=== PATIENT | male | born 1940 | race Caucasian/White ===

== ENCOUNTER → 2020-05-04 10:02 | Outpatient (CLI) | payer MEDICARE, OTHER ==
[2020-05-04 10:55] LABS: BASOPHILS 0.4 % (0-2); EOSINOPHILS 1.9 % (0-7); HEMATOCRIT 48.1 % (42.0-54.0); HEMOGLOBIN 15.8 g/dL (13.5-17.5); IMMATURE GRANULOCYTES 0.2 % (0-5); LYMPHOCYTES 19.9 % (15-50); MCH 33.2 pg (26.0-34.0); MCHC 32.8 g/dL (31.0-37.0); MCV 101.1 fL (80.0-100.0); MEAN PLATELET VOLUME 8.9 fL (7.4-10.4); MONOCYTES 7.7 % (2-11); NEUTROPHILS 69.9 % (40-80); PLATELET COUNT 244 10x3/uL (130-400); RBC 4.76 10x6/uL (4.20-6.10); RDW 13.7 % (11.5-14.5); WBC 11.3 10x3/uL (4.8-10.8)
[2020-05-04 11:41] LABS: ALBUMIN 3.6 g/dL (3.4-5.0); ANION GAP 7.5 mmol/L (8-16); BILIRUBIN - TOTAL 0.31 mg/dL (0.2-1.3); CALCIUM 9.3 mg/dL (8.5-10.1); CARBON DIOXIDE 34.1 mmol/L (21.0-32.0); CREATININE - SERUM 1.5 mg/dL (0.6-1.3); POTASSIUM - SERUM 4.6 mmol/L (3.5-5.1); PROTEIN - SERUM 7.1 g/dL (6.4-8.2)
[2020-05-05 14:09] LABS: CEA 3.4 ng/mL (0.0-4.7)
== END | disposition home or self-care (01) ==
LOC: D.LAB 10:02
PROVIDERS: ATTEND Internal Medicine Pulmonary Disease
DX: Z11.59 Encounter for screening for other viral diseases (principal); R91.8 Other nonspecific abnormal finding of lung field

== ENCOUNTER 2020-05-06 08:00 | Outpatient (CLI) | payer MEDICARE, OTHER ==
[2020-06-26 09:08] VITALS: BMI 27.1
== END 2020-05-06 08:01 | disposition home or self-care (01) ==
LOC: D.RT 08:00
PROVIDERS: ATTEND Internal Medicine Pulmonary Disease
DX: R91.8 Other nonspecific abnormal finding of lung field (principal); Z11.59 Encounter for screening for other viral diseases

== ENCOUNTER 2020-06-26 07:07 | Day surgery (SDC) | payer MEDICARE, OTHER ==
[~2020-06-26] VITALS: Ht 180.3 cm; Wt 88.2 kg
[2020-06-26 07:29] LABS: HEMATOCRIT 48.8 % (42.0-54.0); HEMOGLOBIN 15.9 g/dL (13.5-17.5); MCH 32.4 pg (26.0-34.0); MCHC 32.6 g/dL (31.0-37.0); MCV 99.6 fL (80.0-100.0); MEAN PLATELET VOLUME 9.1 fL (7.4-10.4); RBC 4.9 10x6/uL (4.20-6.10); RDW 13.8 % (11.5-14.5); WBC 15.4 10x3/uL (4.8-10.8)
[2020-06-26 07:46] LABS: ANION GAP 13.8 mmol/L (8-16); CALCIUM 9.9 mg/dL (8.5-10.1); CARBON DIOXIDE 25.4 mmol/L (21.0-32.0); CREATININE - SERUM 1.3 mg/dL (0.6-1.3); POTASSIUM - SERUM 4.2 mmol/L (3.5-5.1)
[2020-06-26] MEDS ORDERED: TOPROL XL50 MG PO (08:45)
[2020-06-26] MEDS ORDERED: ZYLOPRIM300 MG PO (08:46)
[2020-06-26] MEDS ORDERED: GLUCOPHAGE1000 MG PO (08:47)
[2020-06-26] MEDS ORDERED: LEVOTHYROXINE150 MCG PO (08:47)
[2020-06-26] MEDS ORDERED: ALBUTEROL SULF8.5 GM INH (08:48)
[2020-06-26] MEDS ORDERED: ABILIFY10 MG PO (08:49)
[2020-06-26] MEDS ORDERED: PRAVACHOL40 MG PO (08:49)
[2020-06-26] MEDS ORDERED: BUPROPION XL150 MG PO (08:50)
[2020-06-26] MEDS ORDERED: JARDIANCE25 MG PO (08:51)
[2020-06-26] MEDS ORDERED: TRAZODONE HCL100 MG PO (08:52)
[2020-06-26] MEDS ORDERED: ANORO ELLIPTA1 EACH INH (08:53)
[2020-06-26] MEDS ORDERED: DONEPEZIL HCL10 MG PO (08:54)
[2020-06-26] MEDS ORDERED: MELATONIN5 M3 PO (08:55)
[2020-06-26] MEDS ORDERED: EFFEXOR XR150 MG PO (08:56)
[2020-06-26 09:08] VITALS: BP 134/81; Ht 180.3 cm; Wt 88.2 kg
--- NOTE | 2020-06-27 17:57 | OP ---
PATIENT NAME: SILVINA ANDREWS MEDICAL RECORD: [id number] :40 LOCATION:[facility] ADMISSION DATE: SURGEON: CARLOZ BROWNLEE DO DATE OF OPERATION: 06/26/2020 PROCEDURE: Colonoscopy with polypectomy. INDICATION FOR PROCEDURE: 1. History of colon polyps. The patient was asked to have a repeat recall colonoscopy at 3 years, but his last colonoscopy was in 2013. 2. Diverticulosis. 3. Diarrhea which the patient reports has resolved since his clinic visit. 4. Abnormal weight loss. SCOPE: Olympus video pediatric colonoscope. MEDICATIONS: Propofol 460 mg IV and 900 mcg of Konstantin-Synephrine IV per anesthesia. WITHDRAWAL TIME: 28 minutes. ESTIMATED BLOOD LOSS: Minimal. COMPLICATIONS: None immediate. FINDINGS: Informed consent was given. The patient was made comfortable with the above medications. After reaching an adequate level of sedation by slow IV push, the patient was placed on his left side. The endoscope was advanced under direct visualization through the rectum to the cecum where the appendiceal orifice and the ileocecal valve were visualized. The endoscope was slowly withdrawn. Mucosa was examined to the best of my ability. The prep quality was extremely poor, limiting visualization. There were multiple polyps visualized on today's examination. Seven benign-appearing depressed and sessile adenomatous polyps were identified in the descending colon. They ranged in size from 4 to 8 mm in diameter. They were removed using a hot snare. In the transverse colon, there were 2 sessile polyps, which ranged in size from 5 to 7 mm in diameter. They were removed using a hot snare. In the ascending colon, there were 3 separate benign-appearing sessile polyps, which ranged in size from 5 to 7 mm in diameter. They were removed using a hot snare. In the cecum, there was a large polyp, which measured approximately 2 to 2.5 cm in size. It was removed using endoscopic mucosal resection technique with a saline pillow and Eleview injection followed by hot snare polypectomy. The defect left behind was closed using 6 endoclips successfully. Due to the inadequate prep, visualization was extremely limited and the patient will be requested to repeat a colonoscopy in the near future. The colonoscope was withdrawn from the patient. The patient did tolerate the procedure well and there were no immediate complications. IMPRESSION: 1. Multiple polyps as described above, removed using a combination of a hot snare and endoscopic mucosal resection technique. 2. Inadequate prep. PLAN AND RECOMMENDATIONS: 1. Discharge home when recovery parameters are met. OPERATIVE REPORT [id number] SILVINA ANDREWS 2. Follow up biopsy specimen results. 3. High-fiber diet. 4. Continue current medications. 5. Recall colonoscopy in 3-6 months utilizing a split bowel prep. NTS:[id number] Voice Confirmation ID: [id number] DOCUMENT ID: [id number] CARLOZ BROWNLEE DO at 1757 CC: [id number] DICTATION DATE: 06/26/20 1119 TECHNOLOGY ASSISTANT: 06/26/[address] [facility] 06/26/20 [id number] [place] [address]
== END 2020-06-26 12:12 | disposition home or self-care (01) ==
LOC: D.OPS 07:07
PROVIDERS: Anesthesiology; ATTEND Internal Medicine Gastroenterology
DX: Z86.010 Personal history of colon polyps (principal); K57.90 Diverticulosis of intestine, part unspecified, without perforation or abscess without bleeding; R63.4 Abnormal weight loss; R19.7 Diarrhea, unspecified; K63.5 Polyp of colon

== ENCOUNTER 2020-11-27 11:53 | Day surgery (SDC) | payer MEDICARE, OTHER ==
[~2020-11-27] VITALS: Ht 180.3 cm; Wt 88.2 kg
--- NOTE | ~2020-11-27 | OP ---
PATIENT NAME: SILVINA ANDREWS MEDICAL RECORD: [id number] :40 LOCATION:[facility] ADMISSION DATE: SURGEON: JESSICA CARTY MD DATE OF OPERATION: 11/27/2020 PROCEDURE: Colonoscopy. PREOPERATIVE DIAGNOSIS: History of polyps. Of note, this patient is on Plavix and only stopped his Plavix yesterday; therefore, this colonoscopy was diagnostic. I did have a long discussion with the patient and his at bedside prior to the procedure, and they did indicate that they wanted to proceed with a diagnostic colonoscopy. MEDICATION: Propofol per anesthesia. Colonoscopy was performed. The colonoscope was inserted through the rectum and advanced to the cecum, identified by the ileocecal valve and the appendiceal orifice. The quality of the prep was good to fair. There were a few polyps visualized, but as outlined above, they were not removed due to the patient being on Plavix. There was a small descending colon polyp as well as 2 sigmoid polyps visualized. Again, these were not removed due to the patient being on Plavix. The remainder of the exam was normal other than a few small sigmoid diverticula. FINAL DIAGNOSES: Few diverticula, polyps as outlined above. Fair prep. PLAN: Recommend repeat colonoscopy in 2-3 months with 2-day prep and holding the patient's Plavix. TRANSINT:[id number] Voice Confirmation ID: [id number] DOCUMENT ID: [id number] JESSICA CARTY MD CC: [id number] DICTATION DATE: 11/27/20 1616 DINING ROOM HELPER: 11/28/20 0113 [facility] 11/27/20 [id number] [place] [address]
[~2020-11-27 11:53] MED LIST: ABILIFY10 MG PO; ALBUTEROL SULF8.5 GM INH; ANORO ELLIPTA1 EACH INH; BUPROPION XL150 MG PO; DONEPEZIL HCL10 MG PO; EFFEXOR XR150 MG PO; GLUCOPHAGE1000 MG PO; JARDIANCE25 MG PO; LEVOTHYROXINE150 MCG PO; MELATONIN5 M3 PO; PRAVACHOL40 MG PO; TOPROL XL50 MG PO; TRAZODONE HCL100 MG PO; ZYLOPRIM300 MG PO
[2020-11-27 12:29] LABS: BASOPHILS 0.4 % (0-2); EOSINOPHILS 1.4 % (0-7); HEMATOCRIT 50.5 % (42.0-54.0); HEMOGLOBIN 16.7 g/dL (13.5-17.5); IMMATURE GRANULOCYTES 0.2 % (0-5); LYMPHOCYTE ABS# 1.55 10x3/uL (1.32-3.57); LYMPHOCYTES 16.2 % (15-50); MCH 32.8 pg (26.0-34.0); MCHC 33.1 g/dL (31.0-37.0); MCV 99.2 fL (80.0-100.0); MONOCYTES 8.9 % (2-11); NEUTROPHILS 72.9 % (40-80); PLATELET COUNT 218 10x3/uL (130-400); RBC 5.09 10x6/uL (4.20-6.10); WBC 9.6 10x3/uL (4.8-10.8)
[2020-11-27 12:48] LABS: ANION GAP 15.3 mmol/L (8-16); CALCIUM 9.6 mg/dL (8.5-10.1); CREATININE - SERUM 1.6 mg/dL (0.6-1.3); POTASSIUM - SERUM 4.3 mmol/L (3.5-5.1)
[2020-11-27] MEDS ORDERED: CRESTOR20 MG PO (13:26)
[2020-11-27 13:32] VITALS: BP 135/84; Ht 180.3 cm; Wt 88.2 kg
--- NOTE | 2020-11-27 17:02 | NUR ---
1615 PT SLIGHTLY DROWSY. DRINKING OJ X2. INSTRUCTIONS GIVEN. DR CARTY IN ROOM TO TALK TO [id number] ASSISTED UP TO BATHROOM TO URINATE AND PASS GAS. IV REMOVED ASSISTED WITH GETTING DRESSED
== END 2020-11-27 16:50 | disposition home or self-care (01) ==
LOC: D.OPS 11:53
PROVIDERS: Anesthesiology; ATTEND Internal Medicine Gastroenterology
DX: Z86.010 Personal history of colon polyps (principal); K57.30 Diverticulosis of large intestine without perforation or abscess without bleeding; R19.7 Diarrhea, unspecified; R63.4 Abnormal weight loss; K63.5 Polyp of colon

== ENCOUNTER → 2021-04-01 09:35 | Outpatient (CLI) | payer MEDICARE, OTHER ==
[2020-11-27 13:32] VITALS: BMI 27.1
[~2021-04-01 09:35] MED LIST changes: +CRESTOR20 MG PO
== END | disposition home or self-care (01) ==
LOC: D.CT 02-16 10:00
PROVIDERS: ATTEND Internal Medicine Pulmonary Disease
DX: R91.8 Other nonspecific abnormal finding of lung field (principal)